=== PATIENT | female | born 1975 | race Two or more races ===

== ENCOUNTER → 2016-04-27 | Outpatient (CLI) | payer OTHER ==
[~2016-04-27] MED LIST: COLACE PO; MOTRIN PO; NEXI40CA PO; PERC5TAB6 PO; birth control pill OR; ibuprofen OR; iron OR; percocet OR
--- NOTE | 2016-04-27 18:12 | REP ---
Right ankle series: Four views: History: Right ankle injury. Findings: Four views of the right ankle demonstrate an intact ankle mortise. No fracture or subluxation is seen. Impression: No fracture noted. Signed by Greg Millan MD 04/27/2016 07:46 P
== END ==
LOC: M LRY 17:03
PROVIDERS: ATTEND Nurse Practitioner Family
DX: S99.911A Unspecified injury of right ankle, initial encounter (principal); X58.XXXA Exposure to other specified factors, initial encounter; Y92.9 Unspecified place or not applicable; Y93.9 Activity, unspecified; Y99.9 Unspecified external cause status

== ENCOUNTER 2016-10-16 15:29 | Emergency (ER) | payer OTHER ==
[~2016-10-16] VITALS: Ht 152.4 cm; Wt 72.2 kg
[~2016-10-16 15:29] MED LIST changes: +PERC5TAB12 PO; -PERC5TAB6 PO
[2016-10-16] MEDS ORDERED: NITROGLYCERIN 0.4 MG SUBL TABLET SL STA (17:29)
[2016-10-16] MEDS ORDERED: ASPIRIN 81 MG CHEW TABLET PO ONE (17:30)
[2016-10-16] MEDS ORDERED: ALBUTEROL 90 MCG/ACT 8GM HFA INHALER INH ONE (17:30)
[2016-10-16 17:47] VITALS: BP 159/80
--- NOTE | 2016-10-16 17:48 | REP ---
Chest one-view HISTORY: Chest pain Comparison: None The lungs are clear. The heart is normal in size. The pulmonary vasculature is normal in appearance. Impression: No acute disease. Signed by Rommel Tejada MD 10/16/2016 05:41 P
[2016-10-16 18:56] LABS: BASO % 0.2 % (0.0-1.0); EOS # 0.1 K/mm3 (0.0-0.50); EOS % 1.9 % (0.0-3.0); LARGE UNSTAINED CELL # 0.1 K/mm3 (0.0-0.4); LARGE UNSTAINED CELL % 1.4 % (0.0-4.0); LYMPH # 2.3 K/mm3 (1.5-4.5); MEAN CORPUSCULAR HEMOGLOBIN 28.3 pg (27.0-33.0); MEAN CORPUSCULAR HGB CONC 33.9 g/dl (32.0-36.5); MEAN CORPUSCULAR VOLUME 83.4 fl (80.0-96.0); MONO # 0.3 K/mm3 (0.0-0.8); MONO % 4.5 % (0.0-5.0); NEUTROPHILS # 3.7 K/mm3 (1.8-7.7); NEUTROPHILS % 57.1 % (36.0-66.0); PLATELET COUNT, AUTOMATED 356 k/mm3 (150-450); RED CELL DISTRIBUTION WIDTH 12.9 % (11.5-14.5); WHITE BLOOD COUNT 6.4 K/mm3 (4.0-10.0)
[2016-10-16 19:04] LABS: INR 0.94
[2016-10-16 19:38] LABS: ANION GAP 8 MEQ/L (8-16); BLOOD UREA NITROGEN 17 MG/DL (7-18); CALCIUM LEVEL 8.7 MG/DL (8.5-10.1); CARBON DIOXIDE LEVEL 28 MEQ/L (21-32); CHLORIDE LEVEL 111 MEQ/L (98-107); CREATININE FOR GFR 0.82 MG/DL (0.55-1.02); GLOMERULAR FILTRATION RATE > 60.0 (>58); GLUCOSE, FASTING 107 MG/DL (70-105); POTASSIUM SERUM 4.6 MEQ/L (3.5-5.1); SODIUM LEVEL 147 MEQ/L (136-145)
[2016-10-16] MEDS ORDERED: ISOVUE-370 76% 100ML VIAL (Q9967) As Ordered ONE (20:00)
--- NOTE | 2016-10-16 20:50 | REPUSA ---
CT angiogram of the chest Clinical statement: Chest pain and shortness of breath. Technique: Multiple axial CT images were obtained from the thoracic inlet through the upper abdomen a fter a bolus administration of nonionic intravenous contrast. Coronal and sagittal reconstructions we re also obtained. No comparison is available. Findings: The pulmonary arteries are well-opacified with contrast, with no intraluminal filling defec ts to suggest embolism. The thoracic aorta is unremarkable. Thyroid gland is within normal limits. Th ere is no thoracic lymphadenopathy. There are no pericardial or pleural effusions. The lungs are nain r. Limited imaging of the upper abdomen is unremarkable. There are no suspicious osseous lesions. Impression: Unremarkable CT examination of the chest. No evidence of pulmonary embolism.
[2016-10-16 23:23] VITALS: BP 123/73
--- NOTE | 2016-10-18 08:18 | ECGEPIP ---
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
--- NOTE | 2016-10-18 08:27 | ECGEPIP ---
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
== END 2016-10-16 23:30 | disposition home or self-care (01) ==
LOC: M ED 15:29
DX: R07.9 Chest pain, unspecified (principal); R06.02 Shortness of breath; I45.10 Unspecified right bundle-branch block; K21.9 Gastro-esophageal reflux disease without esophagitis
CPT/HCPCS: 36415; 71010; 71275; 80048; 82550; 82553; 83880; 85025; 85610; 85730; 93005; 93041; 94760; 99285; Q9967

== ENCOUNTER → 2018-02-07 | Outpatient (REF) | payer OTHER | LOC: M SFHCLERA 09:40 | PROVIDERS: ATTEND Physician Assistant | DX: R50.9 Fever, unspecified (principal) ==

== ENCOUNTER 2018-06-29 06:45 | Day surgery (SDC) | payer OTHER ==
[~2018-06-29] VITALS: Ht 152.4 cm; Wt 77.6 kg
[~2018-06-29 06:45] MED LIST changes: +ALBU8.5H IH; +BREO1INH INH; +FEXO180T58 PO; +FLON1SPR; +NS 1,000 ML IV ONE; +OMEP-218 PO; +OMEP40CA2 PO
[2018-06-29] MEDS ORDERED: LIDOCAINE 2% INJ 100 MG/5 ML SDV (FOR ANES.) As Ordered ONE (07:01)
[2018-06-29] MEDS ORDERED: PROPOFOL 200 MG/20 ML VIAL As Ordered ONE (07:01)
--- NOTE | 2018-06-29 08:16 | ROOR ---
Patient Name: Adele Anton Procedure Date: 06/29/2018 8:01 AM Date of : 1975 Age: 43 Room: [facility] Gender: Female Note Status: Finalized Procedure: Upper Endoscopy + Biopsies Indications: Heartburn, Exclusion of Montano's esophagus Providers: David Berumen MD Referring MD: POLY PANG MD Requesting Provider: Medicines: Monitored Anesthesia Care Complications: No immediate complications. Procedure: Pre-Anesthesia Assessment: - The heart rate, respiratory rate, oxygen saturations, blood pressure, adequacy of pulmonary ventilation, and response to care were monitored throughout the procedure. The Endoscope was introduced through the mouth, and advanced to the second part of duodenum. The upper GI endoscopy was accomplished without difficulty. The patient tolerated the procedure well. Findings: The Z-line was irregular and was found 35 cm from the incisors. Multiple biopsies were obtained with cold forceps for evaluation to rule out Montano's Esophagus randomly at the gastroesophageal junction. A small hiatal hernia was present. No other significant abnormalities were identified in a careful examination of the stomach. The exam of the duodenum was otherwise normal. Impression: - Z-line irregular, 35 cm from the incisors. - Small hiatal hernia. - Multiple biopsies were obtained at the gastroesophageal junction. - The examination was otherwise normal. Recommendation: - Patient has a contact number available for emergencies. The signs and symptoms of potential delayed complications were discussed with the patient. Return to normal activities tomorrow. Written discharge instructions were provided to the patient. - High fiber diet. - Discharge patient to home. - Follow an antireflux regimen. - Continue present medications. - Await pathology results. - Telephone GI clinic for pathology results in 1 week. - Return to referring physician. - The findings and recommendations were discussed with the patient's family. David Berumen MD David Berumen MD 06/29/2018 8:16:36 AM Electronically signed by David Berumen MD Number of Addenda: 0 Note Initiated On: 06/29/2018 8:01 AM Estimated Blood Loss: Estimated blood loss: none.
--- NOTE | 2018-06-29 08:29 | ROOR ---
Patient Name: Adele Anton Procedure Date: 06/29/2018 8:02 AM Date of : 1975 Age: 43 Room: [facility] Gender: Female Note Status: Finalized Procedure: Total Colonoscopy to Cecum + ileoscopy + Bx Indications: Change in bowel habits Providers: David Berumen MD Referring MD: POLY PANG MD Requesting Provider: Medicines: Monitored Anesthesia Care Complications: No immediate complications. Procedure: Pre-Anesthesia Assessment: - The heart rate, respiratory rate, oxygen saturations, blood pressure, adequacy of pulmonary ventilation, and response to care were monitored throughout the procedure. The Colonoscope was introduced through the anus and advanced to the cecum, identified by appendiceal orifice and ileocecal valve. The colonoscopy was performed without difficulty. The patient tolerated the procedure well. The quality of the bowel preparation was excellent. Findings: The perianal and digital rectal examinations were normal. No other significant abnormalities were identified in a careful examination of the remainder of the colon. The terminal ileum appeared normal. Biopsies for histology were taken with a cold forceps from the ascending colon, transverse colon and descending colon for evaluation of microscopic colitis. A few small-mouthed diverticula were found in the recto-sigmoid colon. Impression: - The examined portion of the ileum was normal. - Diverticulosis in the recto-sigmoid colon. - Biopsies were taken with a cold forceps from the ascending colon, transverse colon and descending colon for evaluation of microscopic colitis. - The exam was otherwise normal to the cecum. Recommendation: - Patient has a contact number available for emergencies. The signs and symptoms of potential delayed complications were discussed with the patient. Return to normal activities tomorrow. Written discharge instructions were provided to the patient. - High fiber diet. - Discharge patient to home. - Continue present medications. - Await pathology results. - Telephone GI clinic for pathology results in 1 week. - Repeat colonoscopy in 10 years for screening purposes. - Return to referring physician. - The findings and recommendations were discussed with the patient's family. David Berumen MD David Berumen MD 06/29/2018 8:29:03 AM Electronically signed by David Berumen MD Number of Addenda: 0 Note Initiated On: 06/29/2018 8:02 AM Estimated Blood Loss: Estimated blood loss: none.
[2018-06-29 08:58] VITALS: BP 126/84
== END 2018-06-29 09:00 | disposition home or self-care (01) ==
LOC: M OPP 06:45
PROVIDERS: ATTEND Internal Medicine Gastroenterology
DX: K57.30 Diverticulosis of large intestine without perforation or abscess without bleeding (principal); R19.4 Change in bowel habit; K22.8 Other specified diseases of esophagus; K44.9 Diaphragmatic hernia without obstruction or gangrene; R12 Heartburn

== ENCOUNTER → 2019-02-23 | Outpatient (CLI) | payer OTHER ==
[~2019-02-23] MED LIST changes: -NS 1,000 ML IV ONE; -OMEP40CA2 PO; +OMEP40CA97 PO
--- NOTE | 2019-02-23 08:54 | REP ---
CT paranasal sinuses: 02/23/2019. Indication: Sinusitis. Comparison: None. Technique: Unenhanced axial CT images of the paranasal sinuses were performed with coronal reconstructions provided. Findings: Mild periosteal mucosal thickening and frothy secretions are noted within the left greater than right inferior maxillary sinuses. The right frontal sinus is aplastic. The sinonasal passageways are patent with the exception of the left ostiomeatal complex which is moderately narrowed predominantly secondary to cartilaginous/congenital narrowing. There is minimal rightward deviation of the nasal septum. The mastoid air cells are clear. No significant ocular, intraorbital or intracranial abnormalities are present. Impression: Mild acute on chronic bilateral maxillary sinus disease as described. Electronically Signed by Zain Winters DO 02/23/2019 08:45 A
== END ==
LOC: M RAD 08:17
PROVIDERS: ATTEND Specialist
DX: J34.2 Deviated nasal septum (principal); J01.01 Acute recurrent maxillary sinusitis

== ENCOUNTER 2019-09-11 08:55 | Day surgery (SDC) | payer OTHER ==
[~2019-09-11] VITALS: Ht 154.9 cm; Wt 78.9 kg
[~2019-09-11 08:55] MED LIST changes: +ALIG4CAP PO; +CETI-24 PO; +FAMO1TAB11 PO; +FAMO20TA PO; +LR 1,000 ML IV ONE; +MONT10TA4 PO; +MUCI600T31 PO; +OLOP0.1D OU; +SYST1SOL OU
[2019-09-11] MEDS ORDERED: SUCR1TAB56 PO (09:33)
[2019-09-11] MEDS ORDERED: OMEP-218 PO (09:33)
[2019-09-11] MEDS ORDERED: LIDOCAINE 2% 100MG/5ML SDV (FOR ANES.) As Ordered ONE (09:53)
[2019-09-11] MEDS ORDERED: dexameTHASONE 4 MG/ML 1ML VIAL (J1100 PER 1MG) As Ordered ONE (09:53)
[2019-09-11] MEDS ORDERED: propofoL 200 MG/20 ML VIAL As Ordered ONE (09:53)
[2019-09-11] MEDS ORDERED: ROCURONIUM BROMIDE 50 MG/5 ML VIAL As Ordered ONE ×2 (09:53→11:26)
[2019-09-11] MEDS ORDERED: ONDANSETRON 4MG/2ML VIAL As Ordered ONE ×2 (09:53→12:29)
[2019-09-11] MEDS ORDERED: fentaNYL 250 MCG/5 ML INJECTION (J3010) As Ordered ONE (09:57)
[2019-09-11] MEDS ORDERED: MIDAZOLAM INJ 2MG/2ML VIAL (J2250 PER 1MG) As Ordered ONE (09:57)
[2019-09-11] MEDS ORDERED: LIDOCAINE W/EPINEPHRINE 1% 20ML VIAL As Ordered ONE (10:34)
[2019-09-11] MEDS ORDERED: METHYLENE BLUE 0.5% (5MG/ML) 10 ML AMP (PROVAYBLUE) As Ordered ONE (10:34)
[2019-09-11] MEDS ORDERED: EPINEPHrine 1MG/ML INJ 30ML MD-VIAL As Ordered ONE (10:35)
[2019-09-11] MEDS ORDERED: OXYMETAZOLINE 0.05% NASAL SPRAY (AFRIN) As Ordered ONE (10:35)
[2019-09-11] MEDS ORDERED: ePHEDrine SULFATE 25 MG/5 ML(5MG/ML) SYRINGE As Ordered ONE (11:27)
[2019-09-11] MEDS ORDERED: SUGAMMADEX SODIUM 500 MG/5 ML VIAL (BRIDION) As Ordered ONE (11:30)
[2019-09-11] MEDS ORDERED: ACETAMINOPHEN 1000MG 100ML IV BTL (OFIRMEV) (J0131 PER 10MG) As Ordered ONE (11:38)
[2019-09-11] MEDS ORDERED: oxyCODONE 5MG TAB As Ordered ONE (12:29)
[2019-09-11] MEDS: oxyCODONE 5MG TAB PO PRN ×2 (12:30→13:03)
[2019-09-11] MEDS: fentaNYL 100 MCG/2 ML INJECTION (J3010) IV PRN ×4 (12:30→12:45)
[2019-09-11] MEDS ORDERED: fentaNYL 100 MCG/2 ML INJECTION (J3010) As Ordered ONE (12:30)
[2019-09-11] MEDS ORDERED: IBUPROFEN 800 MG TAB PO PRN (12:45)
[2019-09-11] MEDS ORDERED: ONDANSETRON 4MG/2ML VIAL IV PRN (12:45)
[2019-09-11] MEDS ORDERED: PERCOCET 5MG/325MG TAB PO PRN (12:45)
[2019-09-11] MEDS ORDERED: LR 1,000 ML IV SCH (12:45)
[2019-09-11 14:51] VITALS: BP 133/76
== END 2019-09-11 14:52 | disposition home or self-care (01) ==
LOC: M SDC 08:55
PROVIDERS: ATTEND Specialist
DX: J01.90 Acute sinusitis, unspecified (principal); J34.2 Deviated nasal septum; J45.909 Unspecified asthma, uncomplicated; K21.9 Gastro-esophageal reflux disease without esophagitis; K58.8 Other irritable bowel syndrome; G47.30 Sleep apnea, unspecified; Z79.51 Long term (current) use of inhaled steroids; Z79.899 Other long term (current) drug therapy
CPT/HCPCS: 30520; 31255; 31267; 88300; 88305; J0131; J1100; J2250; J2405; J3010; Q9968

== ENCOUNTER 2020-06-20 06:46 | Day surgery (SDC) | payer OTHER ==
[~2020-06-20] VITALS: Ht 154.9 cm; Wt 79.7 kg
[~2020-06-20 06:46] MED LIST changes: +FAMO1TAB11; -LR 1,000 ML IV ONE; +METF-838; +MONT10TA10 PO; -MONT10TA4 PO; +SUCR1TAB56 PO; +TRUL10IN
[2020-06-20] MEDS ORDERED: NS 1,000 ML IV ONE (07:00)
[2020-06-20] MEDS ORDERED: LIDOCAINE 2% 100MG/5ML SDV (FOR ANES.) As Ordered ONE (07:18)
[2020-06-20] MEDS ORDERED: propofoL 200 MG/20 ML VIAL As Ordered ONE (07:18)
--- NOTE | 2020-06-20 07:49 | ROOR ---
Patient Name: Adele Anton Procedure Date: 06/20/2020 7:34 AM Date of : 1975 Age: 45 Room: [facility] Gender: Female Note Status: Finalized Procedure: Upper GI endoscopy Indications: Suspected esophageal reflux Providers: Alfredito Aquino Jr, MD Referring MD: POLY PANG MD Requesting Provider: Medicines: Propofol per Anesthesia Complications: No immediate complications. Procedure: Pre-Anesthesia Assessment: - Prior to the procedure, a History and Physical was performed, and patient medications and allergies were reviewed. The patient is competent. The risks and benefits of the procedure and the sedation options and risks were discussed with the patient. All questions were answered and informed consent was obtained. Patient identification and proposed procedure were verified by the physician and the nurse in the pre-procedure area and in the procedure room. Mental Status Examination: alert and oriented. Airway Examination: normal oropharyngeal airway and neck mobility. Respiratory Examination: clear to auscultation. CV Examination: normal. ASA Grade Assessment: II - A patient with mild systemic disease. After reviewing the risks and benefits, the patient was deemed in satisfactory condition to undergo the procedure. The anesthesia plan was to use moderate sedation / analgesia (conscious sedation). Immediately prior to administration of medications, the patient was re-assessed for adequacy to receive sedatives. The heart rate, respiratory rate, oxygen saturations, blood pressure, adequacy of pulmonary ventilation, and response to care were monitored throughout the procedure. The physical status of the patient was re-assessed after the procedure. The Endoscope was introduced through the mouth, and advanced to the second part of duodenum. The upper GI endoscopy was accomplished without difficulty. The patient tolerated the procedure well. Findings: The upper third of the esophagus, middle third of the esophagus and lower third of the esophagus were normal. A small hiatal hernia was present. The cardia, gastric fundus and gastric body were normal. Localized moderate inflammation characterized by congestion (edema), erythema, friability and granularity was found in the gastric body. Biopsies were taken with a cold forceps for histology. The duodenal bulb, first portion of the duodenum and second portion of the duodenum were normal. Biopsies for histology were taken with a cold forceps for evaluation of celiac disease. Impression: - Normal upper third of esophagus, middle third of esophagus and lower third of esophagus. - Small hiatal hernia. - Normal cardia, gastric fundus and gastric body. - Gastritis. Biopsied. - Normal duodenal bulb, first portion of the duodenum and second portion of the duodenum. Biopsied. Recommendation: - Discharge patient to home (ambulatory). - Return to my office as previously scheduled. Procedure Code(s): --- Professional --- 99466, Esophagogastroduodenoscopy, flexible, transoral; with biopsy, single or multiple Diagnosis Code(s): --- Professional --- K44.9, Diaphragmatic hernia without obstruction or gangrene K29.70, Gastritis, unspecified, without bleeding CPT copyright 2019 [employer]. All rights reserved. The codes documented in this report are preliminary and upon supervisory clerk review may be revised to meet current compliance requirements. Alfredito Aquino MD Alfredito Aquino Jr, MD 06/20/2020 7:49:13 AM Electronically signed by Alfredito Aquino Jr, MD Number of Addenda: 0 Note Initiated On: 06/20/2020 7:34 AM Estimated Blood Loss: Estimated blood loss: none.
--- NOTE | 2020-06-20 08:04 | ROOR ---
Patient Name: Adele Anton Procedure Date: 06/20/2020 7:35 AM Date of : 1975 Age: 45 Room: [facility] Gender: Female Note Status: Finalized Procedure: Colonoscopy Indications: Clinically significant diarrhea of unexplained origin, Change in bowel habits Providers: Alfredito Aquino Jr, MD Referring MD: POLY PANG MD Requesting Provider: Medicines: Propofol per Anesthesia Complications: No immediate complications. Procedure: Pre-Anesthesia Assessment: - Prior to the procedure, a History and Physical was performed, and patient medications and allergies were reviewed. The patient is competent. The risks and benefits of the procedure and the sedation options and risks were discussed with the patient. All questions were answered and informed consent was obtained. Patient identification and proposed procedure were verified by the physician and the nurse in the pre-procedure area and in the procedure room. Mental Status Examination: alert and oriented. Airway Examination: normal oropharyngeal airway and neck mobility. Respiratory Examination: clear to auscultation. CV Examination: normal. ASA Grade Assessment: II - A patient with mild systemic disease. After reviewing the risks and benefits, the patient was deemed in satisfactory condition to undergo the procedure. The anesthesia plan was to use moderate sedation / analgesia (conscious sedation). Immediately prior to administration of medications, the patient was re-assessed for adequacy to receive sedatives. The heart rate, respiratory rate, oxygen saturations, blood pressure, adequacy of pulmonary ventilation, and response to care were monitored throughout the procedure. The physical status of the patient was re-assessed after the procedure. The Colonoscope was introduced through the anus and advanced to the terminal ileum. The colonoscopy was performed without difficulty. The patient tolerated the procedure well. The quality of the bowel preparation was adequate. Findings: The rectum, sigmoid colon, descending colon, transverse colon, ascending colon, cecum, appendiceal orifice and ileocecal valve appeared normal. Biopsies for histology were taken with a cold forceps from the cecum, right colon, transverse colon, descending colon and sigmoid colon for evaluation of microscopic colitis. The distal ileum appeared normal. Biopsies were taken with a cold forceps for histology. A few small-mouthed diverticula were found in the sigmoid colon and ascending colon. Impression: - The rectum, sigmoid colon, descending colon, transverse colon, ascending colon, cecum, appendiceal orifice and ileocecal valve are normal. Biopsied. - The examined portion of the ileum was normal. Biopsied. - Diverticulosis in the sigmoid colon and in the ascending colon. Recommendation: - Discharge patient to home (ambulatory). - Repeat colonoscopy in 10 years for screening purposes. Procedure Code(s): --- Professional --- 19173, Colonoscopy, flexible; with biopsy, single or multiple Diagnosis Code(s): --- Professional --- R19.7, Diarrhea, unspecified K57.30, Diverticulosis of large intestine without perforation or abscess without bleeding R19.4, Change in bowel habit CPT copyright 2019 [employer]. All rights reserved. The codes documented in this report are preliminary and upon automatic buffing wheel former review may be revised to meet current compliance requirements. Alfredito Aquino MD Alfredito Aquino Jr, MD 06/20/2020 8:03:40 AM Electronically signed by Alfredito Aquino Jr, MD Number of Addenda: 0 Note Initiated On: 06/20/2020 7:35 AM Estimated Blood Loss: Estimated blood loss: none.
[2020-06-20 08:30] VITALS: BP 181/74
== END 2020-06-20 08:45 | disposition home or self-care (01) ==
LOC: M OPP 06:46
PROVIDERS: ATTEND Surgery
DX: K57.30 Diverticulosis of large intestine without perforation or abscess without bleeding (principal); R19.7 Diarrhea, unspecified; K44.9 Diaphragmatic hernia without obstruction or gangrene; K29.70 Gastritis, unspecified, without bleeding; K21.9 Gastro-esophageal reflux disease without esophagitis; G47.30 Sleep apnea, unspecified; E11.9 Type 2 diabetes mellitus without complications; Z79.84 Long term (current) use of oral hypoglycemic drugs; Z79.899 Other long term (current) drug therapy

== ENCOUNTER → 2021-05-16 | Outpatient (REF) | payer OTHER ==
[~2021-05-16] MED LIST changes: +FEXO-117 PO; -FEXO180T58 PO; -MONT10TA10 PO; +MONT10TA97 PO; -OLOP0.1D OU; +OLOP5DRO16 OU; +OMEP-173 PO; -OMEP-218 PO; +OMEP40CA4 PO; -OMEP40CA97 PO
== END ==
LOC: M WUC 19:53
PROVIDERS: ATTEND Physician Assistant
DX: R30.0 Dysuria (principal)

== ENCOUNTER → 2021-10-10 | Outpatient (CLI) | payer OTHER | LOC: M WHC 13:28 | PROVIDERS: ATTEND Student in an Organized Health Care Education/Training Program | DX: N64.3 Galactorrhea not associated with childbirth (principal) | CPT/HCPCS: 76642; 77066; G0279 ==

== ENCOUNTER → 2022-03-04 | Outpatient (CLI) | payer OTHER ==
[~2022-03-04] MED LIST changes: +GASTROGRAFIN SOLUTION 30ML As Ordered ONE; +ISOVUE-370 76% 100ML VIAL As Ordered ONE
== END ==
LOC: M RAD 07:33
PROVIDERS: ATTEND Student in an Organized Health Care Education/Training Program
DX: R10.9 Unspecified abdominal pain (principal)

== ENCOUNTER 2022-06-05 09:41 | Day surgery (SDC) | payer OTHER ==
[~2022-06-05] VITALS: Ht 154.9 cm; Wt 77.8 kg
[~2022-06-05 09:41] MED LIST changes: -GASTROGRAFIN SOLUTION 30ML As Ordered ONE; -ISOVUE-370 76% 100ML VIAL As Ordered ONE; -METF-838; +METF-838 PO; +NS 1,000 ML IV ONE; -OLOP5DRO16 OU; +OLOP5DRO17 OU; +TIRZ7.5P SQ
[2022-06-05] MEDS ORDERED: fentaNYL 100 MCG/2 ML INJECTION As Ordered ONE (12:17)
[2022-06-05] MEDS ORDERED: LIDOCAINE 2% 100MG/5ML SDV (FOR ANES.) As Ordered ONE (12:20)
[2022-06-05] MEDS ORDERED: propofoL 200 MG/20 ML VIAL As Ordered ONE (12:20)
[2022-06-05 12:48] VITALS: BP 146/86
== END 2022-06-05 12:49 | disposition home or self-care (01) ==
LOC: M OPP 09:41
PROVIDERS: ATTEND Internal Medicine Gastroenterology
DX: K21.9 Gastro-esophageal reflux disease without esophagitis (principal); K44.9 Diaphragmatic hernia without obstruction or gangrene; K29.70 Gastritis, unspecified, without bleeding; R13.10 Dysphagia, unspecified
CPT/HCPCS: 43239; 88305; 91035; J3010

== ENCOUNTER → 2023-05-25 | Outpatient (CLI) | payer OTHER ==
[~2023-05-25] MED LIST changes: -NS 1,000 ML IV ONE
== END ==
LOC: M WHC 14:01
PROVIDERS: ATTEND Internal Medicine
DX: Z12.31 Encounter for screening mammogram for malignant neoplasm of breast (principal)

== ENCOUNTER → 2023-08-25 | Outpatient (CLI) | payer OTHER ==
[~2023-08-25] MED LIST changes: +E-Z-GAS II EFFERVESCENT PACKET (SODIUM BICARB./CITRIC ACID/SIMETHICONE) As Ordered ONE; +E-Z-HD 98% w/w 340GM SUSP BTL As Ordered ONE; +E-Z-PAQUE 96% w/w SUSP 176GM BTL As Ordered ONE
== END ==
LOC: M RAD 08:35
PROVIDERS: ATTEND Surgery
DX: K44.9 Diaphragmatic hernia without obstruction or gangrene (principal); K21.9 Gastro-esophageal reflux disease without esophagitis

== ENCOUNTER → 2023-11-16 | Outpatient (REF) | payer OTHER ==
[~2023-11-16] MED LIST changes: -E-Z-GAS II EFFERVESCENT PACKET (SODIUM BICARB./CITRIC ACID/SIMETHICONE) As Ordered ONE; -E-Z-HD 98% w/w 340GM SUSP BTL As Ordered ONE; -E-Z-PAQUE 96% w/w SUSP 176GM BTL As Ordered ONE
== END ==
LOC: M LAB REF 19:58
PROVIDERS: ATTEND Physician Assistant
DX: R35.0 Frequency of micturition (principal); N76.0 Acute vaginitis

== ENCOUNTER → 2024-06-13 | Outpatient (CLI) | payer OTHER ==
[~2024-06-13] MED LIST changes: -ALIG4CAP PO; +ALIG4CAP3 PO; -FEXO-117 PO; +FEXO-193 PO
== END ==
LOC: M WHC 10:00
PROVIDERS: ATTEND Internal Medicine
DX: Z80.3 Family history of malignant neoplasm of breast (principal); Z12.39 Encounter for other screening for malignant neoplasm of breast

== ENCOUNTER → 2024-08-28 | Outpatient (REF) | payer OTHER | LOC: M LAB REF 12:10 | PROVIDERS: ATTEND Physician Assistant | DX: R35.0 Frequency of micturition (principal) ==